=== PATIENT | female | born 1955 | race Caucasian/White ===

== ENCOUNTER 2017-03-18 18:24 | Emergency (ER) | payer OTHER ==
[2017-03-18 18:37] VITALS: BP 162/89; PULSE 88; TEMP 97.8; BMI 45.1
[2017-03-18] MEDS ORDERED: OXYMETAZOLINE 0.05% NASAL SOLUTION 15 ML BOTTLE NS ONE ×2 (18:40→18:47)
--- NOTE | 2017-03-18 18:47 | PDOC ---
History of Present Illness - General History Source: Patient Exam Limitations: No Limitations <José Miguel Noel - Last Filed: 03/18/17 18:47> - General History Source: Patient Exam Limitations: No Limitations - History of Present Illness Initial Comments: 03/18/17 18:55 The patient is a 61 year old female, with a significant past medical history of hypertension, who presents to the emergency room complaining of epistaxis ( resolved) that occurred approx. 30 minutes ago. The patient reports she was out at dinner with a friend when she experienced a nosebleed from the left nostril. The patient reports she was able to stop the bleeding by pinching her nose. She reports frequent nosebleeds as a child but states she has not had a recent nosebleed in approx. ten years. The patient states she is not on anticoagulants. She denies recent fever, chills, headache or dizziness. She denies nausea, vomit, diarrhea or constipation. She denies chest pain or shortness of breath. Allergies: NKA Primary Care Physician: Dr. Camacho Sweeney <Stephen Cardoso - Last Filed: 03/18/17 18:57> - General Chief Complaint: Nasal Bleeding Stated Complaint: NOSE BLEED Time Seen by Provider: 03/18/17 18:31 Past History - Past Medical History Cancer: Yes (UTERINE) GI Disorders: Yes (REFLUX) HTN: Yes Hypercholesterolemia: Yes Thyroid Disease: Yes (HYPO) - Suicide/Smoking/Psychosocial Hx Smoking History: Never smoked Hx Alcohol Use: No Drug/Substance Use Hx: No Substance Use Type: None <José Miguel Noel - Last Filed: 03/18/17 18:47> <Stephen Cardoso - Last Filed: 03/18/17 18:57> - Past Medical History Allergies/Adverse Reactions: Allergies Allergy/AdvReac Type Severity Reaction Status Date / Time No Known Allergies Allergy Verified 03/18/17 18:33 Home Medications: Ambulatory Orders Biotin 1 mg PO DAILY 06/02/14 Ezetimibe/Simvastatin [Vytorin 10-40 mg Tablet] 10 - 40 mg PO Q2D 06/02/14 Amlodipine Besylate 5 mg PO HS 03/18/17 Levothyroxine [Synthroid -] 100 mcg PO DAILY 03/18/17 Losartan Potassium [Cozaar] 100 mg PO HS 03/18/17 Ranitidine [Zantac -] 150 mg PO DAILY 03/18/17 Review of Systems - Review of Systems Comments:: 03/18/17 18:56 GENERAL/CONSTITUTIONAL: No fever or chills. No weakness. HEAD, EYES, EARS, NOSE AND THROAT: No change in vision. No ear pain or discharge. No sore throat. CARDIOVASCULAR: No chest pain or shortness of breath. RESPIRATORY: No cough, wheezing, or hemoptysis. GASTROINTESTINAL: No nausea, vomiting, diarrhea or constipation. GENITOURINARY: No dysuria, frequency, or change in urination. MUSCULOSKELETAL: No joint or muscle swelling or pain. No neck or back pain. SKIN: No rash NEUROLOGIC: No headache, vertigo, loss of consciousness, or change in strength/ sensation. ENDOCRINE: No increased thirst. No abnormal weight change. HEMATOLOGIC/LYMPHATIC: No anemia, easy bleeding, or history of blood clots. ALLERGIC/IMMUNOLOGIC: No hives or skin allergy. <Stephen Cardoso - Last Filed: 03/18/17 18:57> *Physical Exam - Vital Signs Last Vital Signs Temp Pulse Resp BP Pulse Ox 97.8 F 88 15 162/89 96 03/18/17 18:29 03/18/17 18:29 03/18/17 18:29 03/18/17 18:29 03/18/17 18:29 <José Miguel Noel - Last Filed: 03/18/17 18:47> - Vital Signs Last Vital Signs Temp Pulse Resp BP Pulse Ox 97.8 F 88 15 162/89 96 03/18/17 18:29 03/18/17 18:29 03/18/17 18:29 03/18/17 18:29 03/18/17 18:29 - Physical Exam Comments: 03/18/17 18:56 GENERAL: Awake, alert, and fully oriented, in no acute distress HEAD: No signs of trauma EYES: PERRLA, EOMI, sclera anicteric, conjunctiva clear ENT: +Irritated bilateral septum but no active bleeding. Auricles normal inspection, hearing grossly normal, oropharynx clear without exudates. Moist mucosa NECK: Normal ROM, supple, no lymphadenopathy, JVD, or masses EXTREMITIES: Normal range of motion, no edema. No clubbing or cyanosis. No cords, erythema, or tenderness NEUROLOGICAL: Cranial nerves II through XII grossly intact. Normal speech, normal gait SKIN: Warm, Dry, normal turgor, no rashes or lesions noted. <Stephen Cardoso - Last Filed: 03/18/17 18:57> ED Treatment Course - Medications Given in the ED: ED Medications Discontinued Medications Generic Name Dose Route Start Last Admin Trade Name Sawyer PRN Reason Stop Dose Admin Oxymetazoline HCl 1 spray 03/18/17 18:47 03/18/17 18:50 Afrin - NS 03/18/17 18:48 Not Given ONCE ONE <Stephen Cardoso - Last Filed: 03/18/17 18:57> Medical Decision Making - Medical Decision Making 03/18/17 18:48 A portion of this note was documented by scribe services under my direction. I have reviewed the details of the note, within reason, and agree with the documentation with the following case summary and management plan written by me. Patient treated in the ED. Nursing notes are reviewed and incorporated into the medical decision-making. Vital signs reviewed. Vital Signs Temp Pulse Resp BP Pulse Ox 97.8 F 88 15 162/89 96 03/18/17 18:29 03/18/17 18:29 03/18/17 18:29 03/18/17 18:29 03/18/17 18:29 61 year old female c/ pmh of HTN p/w L sided epistaxis. Pt reports that she was sitting at dinner table, when she started to have spontaneous nose bleed. By the time she arrived to ED, nose bleeding had stopped. No lightheadedness or feinting. I suspect that the changes in the weather is exacerbating her symptoms. Will give her afrin. I instructed her that if she bleeds again to use afrin and pinch. If uncontrollable, return to ED. Pt is well-appearing and without bleeding. Will d/c with PMD follow up. I discussed the physical exam findings, ancillary test results and final diagnoses with the patient. I answered all of the patient's questions. The patient was satisfied with the care received and felt comfortable with the discharge plan and treatment plan. The patient will call their primary care physician within 24 hours to arrange follow-up and will return to the Emergency Department with any new, persistant or worsening symptoms. <José Miguel Noel - Last Filed: 03/18/17 18:47> *DC/Admit/Observation/Transfer - Discharge Dispostion Admit: No <José Miguel Noel - Last Filed: 03/18/17 18:47> - Attestations Scribe Attestion: 03/18/17 18:56 Documentation prepared by Stephen Cardoso, acting as biomedical service engineer for José Miguel Noel MD. <Stephen Cardoso - Last Filed: 03/18/17 18:57> Diagnosis at time of Disposition: Epistaxis - Discharge Dispostion Disposition: HOME Condition at time of disposition: Good - Referrals Referrals: Camacho Sweeney MD [Primary Care Provider] - - Patient Instructions Printed Discharge Instructions: DI for Nosebleed Additional Instructions: If your nose bleeds again, please pinch your nose together. Apply afrin and pinch for 10 to 15 minutes. Buy a humidifier and use it. Follow up with your doctor.
== END 2017-03-18 18:55 | disposition home or self-care (01) ==
LOC: FER 18:24
DX: R04.0 Epistaxis (principal); I10 Essential (primary) hypertension; K21.9 Gastro-esophageal reflux disease without esophagitis; E03.9 Hypothyroidism, unspecified; Z85.42 Personal history of malignant neoplasm of other parts of uterus
CPT/HCPCS: 99281-25

== ENCOUNTER 2020-03-09 05:01 | Day surgery (SDC) | payer OTHER ==
[2020-03-08 14:52] VITALS: BMI 46.0
--- OUTSIDE RECORDS SUMMARY | 2020-03-09 05:06 | XMS ---
:1955 Author Organization [facility] Care Team Providers Name Role Phone LARA BILLY Unavailable Unavailable DiGiorno, Christopher Unavailable DiGiorno, Christopher Unavailable DiGiorno, Christopher Unavailable ADIEL MEJIAS Unavailable Unavailable REA SOL Unavailable Unavailable JIL MARTIN, [id number] Unavailable Unavailable PATRIC GOMES Unavailable Unavailable CARLITOS SEPULVEDA Unavailable Unavailable KHADRA PHOENIX Unavailable Unavailable BEENA MANZANARES Unavailable Unavailable Re-disclosure Warning The records that you are about to access may contain information from federally- assisted alcohol or drug abuse programs. If such information is present, then the following federally mandated warning applies: This information has been disclosed to you from records protected by federal confidentiality rules (42 CFR part 2). The federal rules prohibit you from making any further disclosure of this information unless further disclosure is expressly permitted by the written consent of the person to whom it pertains or as otherwise permitted by 42 CFR part 2. A general authorization for the release of medical or other information is NOT sufficient for this purpose. The Federal rules restrict any use of the information to criminally investigate or prosecute any alcohol or drug abuse patient.The records that you are about to access may contain highly sensitive health information, the redisclosure of which is protected by Article 27-F of the [facility] Public Health law. If you continue you may haveaccess to information: Regarding HIV / AIDS; Provided by facilities licensed or operated by the [facility] Office of Mental Health; or Provided by the [place] Office for People With Developmental Disabilities. If such information is present, then the following [facility] mandated warning applies: This information has been disclosed to you from confidential records which are protected by state law. State law prohibits you from making any further disclosure of this information without the specific written consent of the person to whom it pertains, or as otherwise permitted by law. Any unauthorized further disclosure in violation of state law may result in a fine or group home sentence or both. A general authorization for the release of medical or other information is NOT sufficient authorization for further disclosure. Allergies and Adverse Reactions Type Description Substance Reaction Status Data Source(s ) Drug allergy No Known Allergies No Known [facility] Allergies [facility] Drug allergy No Known Drug No Known Drug [facility] Allergies [facility] Food allergy No Known Food No Known Food [facility] Encounters Encounter Providers Location Date Indications Data Source(s ) Outpatient Attender: 02/26/2020 C54.1 [id number] [facility], 06:00:00 AM Health Care REAAdmitter: EDT Corporat ion REA SOLReferrer: CARLITOS SEPULVEDA C54.1 [id number] Attender: Deonte 02/25/2020 12:00:00 AM ED T [facility], ) Office Attender: Deonte 02/25/2020 12:00:00 AM ED T [facility] ([facility] ) Office Attender: Deonte 02/25/2020 12:00:00 AM ED T [facility] ([facility], ) Office Outpatient Attender: MARIAJOSE 01/15/2020 06:00:00 C54.1 [facility] LARA ESPINOSAAdmitter: AM EDT Health Care LARA BILLY Corporati on JESÚSReferrer: LARA BILLY C54.1 Outpatient Attender: MAGALIE 12/30/2019 10:35:00 C54.1 [facility] EMILIAUNAdmitter: MAGALIE AM EDT [facility] Corporat ion LARA BILLY C54.1 Outpatient Attender: MARIAJOSE 12/11/2019 06:00:00 C54.1 [facility] LARA ESPINOSAAdmitter: AM EDT Health Care LEONIE PHOENIXeferrer: LARA Moseley C54.1 Outpatient Attender: ELISEO, 12/04/2019 09:36:00 C54.1 [facility] EDT alth Care HUMAYUNReferrer: ELISEO [facility] PATRIC C54.1 Outpatient Attender: COCO, 12/04/2019 07:00:00 C54.1 [facility] CARLITOSAdmitter: SWETA, AM EDT Health Care MICHAELReferrer: Corporat ion CARLITOS SEPULVEDA C54.1 Outpatient Attender: SWETA, 08/19/2019 06:00:00 C54.1 [facility] REAAdmitter: SWETA, AM EST Health Care MICHAELReferrer: SWETA Textic REA C54.1 Outpatient Attender: SWETA 07/10/2019 C54.1 [facility] MICHAELAttender: 06:00:00 AM EST [id number] [facility] Care LARA BILLY Corporati on SHAHAttender: CARLITOS SEPULVEDAAdmitter: REA SOLReferrer: CARLITOS SEPULVEDA C54.1 [id number] Outpatient Attender: ELISEO 07/08/2019 10:21:00 C54.1 [facility] ROBERTAdmitter: YAZIDI, AM EST alth Care HUMAYUNReferrer: ELISEO Textic PATRIC C54.1 Outpatient Attender: COCO 07/08/2019 C54.1 [facility] CARLITOSAdmitter: 06:00:00 AM EST [id number] [facility] REAReferrer: CARLITOS SEPULVEDA C54.1 [id number] Outpatient Attender: COCO, 06/12/2019 C54.1 [id number] [facility] CARLITOSAdmitter: 05:00:00 AM EST [id number] Hea lt Care COCO Textic KELECHIKAReferrer: CARLITOS SEPULVEDA C54.1 [id number] Outpatient Attender: COCO, 05/15/2019 07:00:00 C54.1 [facility] CARLITOSAdmitter: SWETA, [facility] Care MICHAELReferrer: Corporat ion CARLITOS SEPULVEDA C54.1 Outpatient Attender: SWETA, 04/17/2019 C54.1 [facility] MICHAELAdmitter: 06:00:00 AM EDT [id number] [facility] SWETA, [facility] MICHAELReferrer: REA SOL C54.1 [id number] Outpatient Attender: MARIAJOSE, 03/26/2019 01:32:00 C54.1 [facility] LARA ESPINOSAAdmitter: EDT [facility] Care LARA BILLY on JESÚSReferrer: LARA BILLY C54.1 Outpatient Attender: [id number] VERONICA, 03/25/2019 06:00:00 C 54.1 [facility] ANATIAdmitter: [id number] AM EDT [facility] Care Linnea MARTINerrer: Textic [id number] JIL MARTIN C54.1 Outpatient Attender: COCO, 03/20/2019 07:00:00 C54.1 [facility] CARLITOSAdmitter: SWETA [facility] MICHAELReferrer: Corporat ion ASHLEYRoseRAGHAVCARLITOS C54.1 Outpatient Attender: [id number] VERONICA, 03/14/2019 06:00:00 C 54.1 [facility] ANATIAdmitter: [id number] AM EDT [facility] Care Linnea MARTINerrer: Corporation [id number] JIL MARTIN C54.1 Outpatient Attender: MARIAJOSE, 02/19/2019 10:28:00 C54.1 [facility] LARA ESPINOSAAdmitter: AM EDT Health Care LARA BILLYReferrer: LARA BILLY C54.1 Outpatient Attender: MARIAJOSE, 02/19/2019 06:00:00 C54.1 [facility] LARA ESPINOSAAdmitter: AM ED Health Care LARA BILLY on JESÚSReferrer: LARA BILLY C54.1 Outpatient Attender: MARIAJOSE, 02/12/2019 Z01.818,C54.1 [facility] LARA ESPINOSAAdmitter: 02:07:00 PM EDT [facility] Care LARA BILLY on JESÚSReferrer: LARA BILLY Z01.818,C54.1 Outpatient Attender: GLENNA, 02/10/2019 C54.1,R22.2 [facility] GRIGORYAttender: 06:00:00 AM EDT [facility] Care LARA BILLY on SHAHAdmitter: LARA BILLYReferrer: LARA BILLY C54.1,R22.2 Outpatient Attender: LIZETT, 02/07/2019 06:00:00 C54.1 R22.2 [facility] ZVIAdmitter: AM EDT [facility] Care LIZETTKinesense [facility] ZVIReferrer: LARA BILLY C54.1 R22.2 Outpatient Attender: MARIAJOSE, 02/03/2019 06:00:00 C54.1, R22.2 [facility] LARA ESPINOSAAdmitter: AM EDT [facility] Care LARA BILLY on JESÚSReferrer: LARA BILLY C54.1,R22.2 Outpatient Attender: MARIAJOSE, 01/28/2019 10:14:00 C54.1 [facility] LARA ESPINOSAAdmitter: AM [facility] LARA BILLY on JESÚSReferrer: LARA BILLY C54.1 Medications Medication Brand Start Product Dose Route Administrative Pharmacy [facility] Indications Reaction Description Data Name Date Form Instructions Instructions Source(s) Ergocalcife VITAMI 02/24/ complet VITAMI N D2 [facility] (St rol 71829 N 2019 ed [facility] UNT Oral D2:136 12:00: Medical , Capsule 7410 00 AM PC) VITAMIN EDT [id number] Tamoxifen TAMOXI 02/24/ complet TAMOXIFE N [facility] (St 20 MG Oral FEN:31 2019 ed [facility] Tablet 3195 12:00: Medical, TAMOXIFEN:3 00 AM PC) 26368 EDT SUPREP 02/24/ LIQUID 1 complet SUPREP LORRAINE L [facility] (St BOWEL PREP 2019 ed PREP KIT Liz' s KIT:[id number] 12:00: Medica l, 00 AM PC) EDT Furosemide FUROSE 02/24/ complet FUROSEM RAGHAVENDRA [facility] (St 40 MG Oral MIDE:3 2019 ed [facility] Tablet 77191 12:00: Medical, FUROSEMIDE: 00 AM PC) [id number] EDT FISH OIL: 02/24/ complet FISH OIL M SHARAN (St 2020 ed Liz's 12:00: Medical, 00 AM PC) EDT ezetimibe EZETIM 02/24/ complet EZETIMIB E-SI [facility] (St 10 MG / DARIEN-SI 2019 ed MVASTATIN Liz' s Simvastatin MVASTA 12:00: Medi [place], 40 MG Oral TIN:47 00 AM PC) Tablet 6350 EDT EZETIMIBE-S IMVASTATIN: 817013 Megestrol MEGEST 02/24/ TABLET 30 complet MEGEST ROL [facility] (St Acetate 40 ROL 2019 ed ACETATE [facility] MG Oral ACETAT 12:00: Medical, Tablet E:8602 00 AM PC) MEGESTROL 21 EDT ACETATE:860 221 pantoprazol PANTOP 02/24/ DELAYED 30 complet GARY TOPRAZOLE [facility] (St e 20 MG RAZOLE 2019 RELEASE ed [facility] Delayed :15094 12:00: TABLET Medica l, Release 2 00 AM PC) Oral Tablet EDT PANTOPRAZOL E:950815 Amlodipine AMLODI 02/24/ complet AMLODIP INE [facility] (St 10 MG Oral PINE 2019 ed BESYLATE Liz' s Tablet BESYLA 12:00: Medical, AMLODIPINE TE:308 00 AM PC) BESYLATE:30 135 EDT 8135 Losartan LOSART 02/24/ complet LOSARTAN [facility] (St Potassium AN:979 2019 ed Liz's 100 MG Oral 480 12:00: Medica l, Tablet 00 AM PC) LOSARTAN:97 EDT 9480 Aspirin 81 ASPIRI 02/24/ complet ASPIRIN [facility] (St MG Delayed N:3084 2019 ed Liz[facility] Release 16 12:00: Medical, Oral Tablet 00 AM PC) ASPIRIN:308 EDT 416 Levothyroxi LEVOTH 02/24/ complet LEVOTH YROXIN [facility] (St ne Sodium YROXIN 2019 ed E Liz's 0.125 MG E:9662 12:00: Medical , Oral Tablet 24 00 AM PC) LEVOTHYROXI EDT NE:708528 Losartan Losart 02/19/ complet [place] Potassium an 2018 ed [facility] 100 MG Oral [100 12:00: Health Tablet mg 00 AM Care Losartan Tablet EDT Corporati o [100 mg ]: 1 n Tablet]: 1 Tablet Tablet Oral Oral DAILY DAILY Levothyroxi Synthr 02/19/ complet [place] Sodium oid 2018 ed [facility] 0.1 MG Oral (Levot 12:00: Heal th Tablet hyroxi 00 AM Care Synthroid ne) EDT Corporatio (Levothyrox [100 n ine) [100 mcg mcg Tablet Tablet]: 1 ]: 1 Tablet Oral Tablet DAILY Oral DAILY Ranitidine Raniti complet [place] 150 MG Oral dine 2018 [facility] Tablet [150 12:00: Health Ranitidine mg 00 AM Care [150 mg Tablet EDT Corporatio Tablet]: 1 ]: 1 n Tablet Oral Tablet DAILY Oral DAILY Amlodipine Amlodi complet [place] 10 MG Oral pine 2018 ed [facility] Tablet [10 mg 12:00: Health Amlodipine Tablet 00 AM Care [10 mg ]: 1 EDT Corporatio Tablet]: 1 Tablet n Tablet Oral Oral DAILY IN DAILY EVENING IN MOHAMUDIN G ezetimibe Vytori 02/19/ complet [place] t[place] 10 MG / n 2018 [facility] Simvastatin 10-40 12:00: Healt h 40 MG Oral (Ezeti 00 AM Care Tablet mibe-S EDT Corporatio Vytorin imvast n 10-40 atin) (Ezetimibe- [10 Simvastatin mg-40 ) [10 mg-40 mg mg Tablet]: Tablet 0.5 Tablet ]: 0.5 Oral EVERY Tablet OTHER Oral DAYComment: EVERY half a pill OTHER DAYCom ment: half a pill Cephalexin Cephal complet [place] 500 MG Oral exin ed [facility] Capsule [500 Health Cephalexin mg Care [500 mg Capsul Corporatio Capsule]: e]: n 500 MG Oral 500 MG 10A-10P Oral 10A-10 P Simethicone Gas complet [place] 80 MG Relief ed [facility] Chewable (Simet Health Tablet Gas hicone Care Relief ) [80 Corporatio (Simethicon mg n e) [80 mg Tablet Tablet]: 80 ]: 80 MG Oral Q8H MG Oral Q8H Acetaminoph Acetam complet [place] t[place] en 325 MG inophe ed [facility] Oral Tablet n [325 Health Acetaminoph mg Care en [325 mg Tablet Corpora jose francisco Tablet]: ]: 650 n 650 MG Oral MG EVERY 6 Oral HOURS EVERY 6 HOURS Simvastatin Simvas complet [place] 20 MG Oral tatin ed [facility] Tablet [20 mg Health Simvastatin Tablet Care [20 mg ]: 40 Corporatio Tablet]: 40 MG n MG Oral Oral Q10PM Q10PM Docusate DOK complet [place] Sodium 100 (Docus ed r Count y MG Oral ate Health Capsule DOK Sodium Care (Docusate ) [100 Corporat io Sodium) mg n [100 mg Capsul Capsule]: e]: 100 MG Oral 100 MG Q8H Oral Q8H Oxycodone Oxycod complet [facility] heste Hydrochlori one [5 ed r Coun ty de 5 MG mg Health Oral Tablet Tablet Care Oxycodone ]: 5 Corporatio [5 mg MG n Tablet]: 5 Oral MG Oral Q4HPRN Q4HPRN PRN PRN Pain Pain sennosides, Senna complet [facility] 8.6 MG Lax ed [facility] Oral Tablet (Senno Health Senna Lax sides) Care (Sennosides [8.6 Corporat io ) [8.6 mg mg n Tablet]: Tablet 17.2 MG ]: Oral Q10PM 17.2 MG Oral Q10PM Insurance Providers Payer name Policy type Policy ID Covered Covered alliance party's Policy P xiomara / Coverage alliance party ID relationship to [place] Inf ormation type [place] [id number] 1 [place] [id number] [employer] PLAN Problems, Conditions, and Diagnoses Code Display Name Description Problem Type Effective Data Sour ce(s) Dates K30 Functional FUNCTIONAL Problem 02/25/2020 [facility] ([address] dyspepsia DYSPEPSIA 12:00:00 AM [facility] Medica l, EDT PC) K22.70 Henry's esophagus HENRY`S Problem 02/25/2020 MED[facility] N (St without dysplasia ESOPHAGUS WITHOUT 12:00:00 AM [facility] Jaden, DYSPLASIA EDT PC) R19.5 Other fecal OTHER FECAL Problem 02/25/2020 [facility] (St abnormalities ABNORMALITIES 12:00:00 AM [facility], EDT PC) C54.1 Malignant neoplasm MALIGNANT Diagnosis 02/26/2020 [place] of endometrium NEOPLASM OF 06:00:00 AM [facility] ealt ENDOMETRIUM EDT Care Corporation E78.5 Hyperlipidemia, HYPERLIPIDEMIA, Diagnosis 01/15/2020 [place] unspecified UNSPECIFIED 06:00:00 AM [facility] EDT [facility] Corporation E03.9 Hypothyroidism, HYPOTHYROIDISM, Diagnosis 01/15/2020 [place] unspecified UNSPECIFIED 06:00:00 AM [facility] EDT Care Corporation I10 Essential (primary) ESSENTIAL Diagnosis 01/15/2020 [facility] hypertension (PRIMARY) 06:00:00 AM [facility] HYPERTENSION EDT Care Corporation C54.9 Malignant neoplasm MALIGNANT Diagnosis 08/19/2019 [facility] [place] of corpus uteri, NEOPLASM OF 06:00:00 AM [facility] unspecified CORPUS UTERI, EST Care UNSPECIFIED Corporation 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 EDT Care peritoneum RETROPERITON AND Corporat ion PERITONEUM K66.9 Disorder of DISORDER OF Diagnosis 02/19/2019 [place] peritoneum, PERITONEUM, 10:28:00 AM [facility] unspecified UNSPECIFIED EDT Care Corporation Z01.818 Encounter for other ENCOUNTER FOR Diagnosis 02/12/2019 [place] azevedoculver preprocedural OTHER 02:07:00 PM [facility] examination PREPROCEDURAL EDT Care EXAMINATION Corporation Z68.41 Body mass index BODY MASS INDEX Diagnosis 02/10/2019 Raghav culver (BMI) 40.0-44.9, (BMI) 40.0-44.9, 06:00:00 AM C Recordant adult ADULT EDT Care Corporation E66.01 Morbid (severe) MORBID (SEVERE) Diagnosis 02/10/2019 Raghav culver obesity due to OBESITY DUE TO 06:00:00 AM Count y Health excess calories EXCESS CALORIES EDT Care Corporation Z85.42 Personal history of PERSONAL HISTORY Diagnosis 02/10/2019 [place] malignant neoplasm OF MALIGNANT 06:00:00 AM [facility] other parts of NEOPLASM OF OT EDT Ca re uterus PRT UTERUS Corporation R19.00 Intra-abdominal and INTRA-ABD AND Diagnosis 02/10/2019 [facility] pelvic swelling, PELVIC SWELLING, 06:00:00 AM C ounty [facility] mass and lump, MASS AND LUMP, EDT Care unspecified site UNSP SITE Corporat ion R22.2 Localized swelling, LOCALIZED Diagnosis 02/07/2019 [facility] pink mass and lump, SWELLING, MASS 06:00:00 AM Count Health trunk AND LUMP, TRUNK EDT Care Textic Surgeries/Procedures Procedure Description Date Indications Data Source(s) Documentation of current 02/25/2020 [facility] ([facility] medications (procedure) 12:00:00 AM EDT M edical, PC) COLLECTION VENOUS BLOOD 02/25/2020 MED[facility] EN ([facility] VENIPUNCTURE 12:00:00 AM EDT Medical, PC) Results ID Date Data Source [id number] 03/04/2020 12:48:00 PM EDT [facility] Name Value Range Interpretation Description Data Sup porting Code Source(s) Document(s ) SARS [facility] coronavirus 2 RNA This lab was ordered by [facility] and reported by [facility]. ID Date Data Source [id number] 02/20/2019 05:30:54 PM EDT [facility] [id number] Textic Name Value Range Interpretation Description Data Sup porting Code Source(s) Document(s ) CV Access (PACSIMAGE <td> 02/20/2019 [place] Device 09:45</td><td> [facility] W/Fluoro Access Device Health Care Final Result W/Fluoro Corporation Name: </td><td><NABEEL De Guzman V ph MRN: styleCode="[id number] [id number] Sex: s">(PACSIMAGE F : 1955 )</paragraph><br/ Location: F >
Final Admitting Result Physician:

Requesting Name: NABEEL LEIGH Physician: Dayami BERMUDEZ
MRN: [id number] Sex: F Exam: CV
ACCESS DEVICE : 1955 W/FLUORO Location: F 02/20/2019
11:57 Admitting In relation Physician: to the report
below please Requesting note the Physician: LARA following. FRANNIE Imaging

(Ultrasound, Exam: CV CT or ACCESS DEVICE Fluoroscopy) W/FLUORO guidance 02/20/2019 11:57 means that 1. Imaging

(Ultrasound, In relation to CT or the report below Fluoroscopy) please note the evaluation of following. potential

access sites Imaging has been (Ultrasound, CT performed or Fluoroscopy) demonstrating guidance means accessibility that of the
1. target vessel Imaging or organ by (Ultrasound, CT the needle or Fluoroscopy) approach. evaluation of 2. The needle potential has been
advanced to access sites has the target been performed under demonstrating real-time accessibility of imaging
(Ultrasound, the target CT or vessel or organ Fluoroscopy) by the needle guidance. approach. 3. The final
2. needle The needle has position has been advanced to been recorded the target under using the real-time selected
imaging imaging modality (Ultrasound, CT (Ultrasound, or Fluoroscopy) CT or guidance. Fluoroscopy);
3. the images The final needle as well as position has been all other recorded using obtained the selected procedural
images have imaging modality been (Ultrasound, CT permanently or Fluoroscopy); stored in the images PACS.
as Routine well as all other aseptic obtained technique procedural images means that have been the procedure permanently was performed
in stored in PACS. operating room

conditions, Routine aseptic after technique means prepping and that the sterile procedure was draping the performed patient's
in skin within operating room the area of conditions, after procedure, prepping and using sterile sterile draping instruments
and equipment the patient's within the skin within the operative area of field, and procedure, using full sterile sterile
attire (hats, instruments and masks, equipment within gloves, the operative gowns). field, and full Intravenous
sedation sterile attire means that (hats, masks, intravenous gloves, gowns). administratio n of Versed

and Fentanyl Intravenous has been sedation means utilized that intravenous under my administration of supervision
with a Versed and specially Fentanyl has been assigned utilized under my Registered supervision with Nurse
providing the a specially patient's assigned physiologic Registered Nurse monitoring providing the (blood patient's pressure,
respiration, physiologic EKG, monitoring (blood end-tidal pressure, CO2 and pulse respiration, EKG, oximetry) end-tidal according to
CO2 the standard and pulse [facility] protocol. oximetry) The doses according to the of used standard [facility] medications, protocol. time and
The frequency of doses of used the medications, time physiologic and frequency of monitoring as the physiologic well as the
duration of monitoring as the procedure well as the has been duration of the entered into procedure has the nursing been intra-procedu
entered ral record. into the nursing The intra-procedural patient's record. radiation

dose The patient's expressed as radiation dose mGy in expressed as mGy Reference in Reference Point Air Point Kerma has
Air been Kerma has been permanently permanently recorded in recorded in the the [facility] Radiology Radiology
Information Information System. System. Placement of

a central Placement of a venous access central venous port The access port procedure was

performed on The procedure a patient was performed on with a patient with endometrial endometrial cancer who cancer requires
who intravenous requires chemotherapy. intravenous The chemotherapy. The procedure, procedure, possible possible risks,
complications risks, , benefits complications, and benefits and alternatives alternatives were were discussed discussed
with with the the patient and patient and consent was consent was obtained. The obtained. The procedure was procedure was
performed performed with with routine routine aseptic aseptic technique, under technique, local anesthesia, under local
anesthesia, with with intravenous intravenous sedation and sedation and ultrasonographic ultrasonograp and fluoroscopic hic and
fluoroscopic guidance. A guidance. A puncture of the puncture of right internal the right jugular vein was internal done jugular vein
with was done real-time with ultrasonographic real-time guidance using a ultrasonograp 22 gauge needle. hic guidance
using a 22 Using Seldinger gauge needle. technique, the Using track was Seldinger dilated. Then, a technique, subcutaneous the track was
dilated. pocket was formed Then, a in the subclavian subcutaneous area to pocket was accommodate the formed in the chamber subclavian
of the area to port. This was accommodate done through a 1 the chamber inch incision of the port. parallel This was done
and through a 1 below the inch incision clavicle. Careful parallel hemostasis was and below the achieved. The clavicle.
Careful pocket was hemostasis irrigated with was achieved. normal saline The pocket solution. A was irrigated subcutaneous with normal
saline tunnel was formed solution. A between the subcutaneous pocket and the tunnel was venous access formed site. between the
A pocket and dual-lumen the venous catheter was access site. introduced into A dual-lumen the venous access catheter was site. introduced
The tip into the of the catheter venous access was placed at the site. The junction of the tip of the right catheter was
atrium placed at the and the superior junction of vena cava under the right real-time atrium and fluoroscopy. the superior
vena cava The external under segment of the real-time catheter was fluoroscopy. attached to the The external chamber. segment of
The the catheter chamber was was attached placed into the to the subcutaneous chamber. pocket. The The chamber incision was placed
was into the closed with subcutaneous absorbable pocket. The sutures, incision Dermabond and was closed Steri-Strips. with
absorbable The port sutures, ("Port-A-Cath Dermabond and Power P.A.C.") Steri-Strips. was accessed, The port irrigated ("Port-A-Cath
with Power heparinized P.A.C.") was saline and a accessed, sterile dressing irrigated was applied. with There heparinized
was no saline and a complication. sterile
dressing was An educational applied. brochure There was regarding the no device was given complication. to the An
patient educational (or included to brochure the patient's regarding the chart to be given device was to the given to the
patient (or patient's included to health-care proxy the patient's by the unit's chart to be RN). given to the

<b patient's r/>
health-care Resident proxy by the Radiologist: unit's RN).
Attending Resident Radiologist: Radiologist: Beena Berg MD Radiologist:
Beena Manzanares MD Radiologist: Rosenda Manzanares Radiologist: MD [place]
Glenna FITZGERALD Transcribed Date: Transcribed 02/20/2019 12:03 Date:
02/20/2019 Finalized Date: 12:03 02/20/2019 12:04 Finalized Date:

</td> 02/20/2019 12:04 Angio US (PACSIMAGE <td> 02/20/2019 [place] Guidance 09:45</td><td> [facility] Angio US Guidance Health Care Final Result </td><td><paragr Corporati on Name: chuck NABEEL LEIGH V styleCode="Italic MRN: s">(PACSIMAGE [id number] Sex: F : )</paragraph><br/ 1955 >
Final Location: F Result Admitting

Physician: Name: NABEEL LEIGH Requesting V Physician:
MRN: LARA [id number] Sex: F FRANNIE
Exam: : 1955 ANGIO US Location: F GUIDANCE
02/20/2019 Admitting 11:57 Physician: In relation
to the report Requesting below please Physician: LARA note the FRANNIE following.

Imaging Exam: ANGIO US (Ultrasound, GUIDANCE CT or 02/20/2019 11:57 Fluoroscopy) guidance

means that In relation to 1. Imaging the report below (Ultrasound, please note the CT or following. Fluoroscopy)

evaluation of Imaging potential (Ultrasound, CT access sites or Fluoroscopy) has been guidance means performed that demonstrating
1. accessibility Imaging of the (Ultrasound, CT target vessel or Fluoroscopy) or organ by evaluation of the needle potential approach.
2. The needle access sites has has been been performed advanced to demonstrating the target accessibility of under
real-time the target imaging vessel or organ (Ultrasound, by the needle CT or approach. Fluoroscopy)
2. guidance. The needle has 3. The final been advanced to needle the target under position has real-time been recorded
using the imaging selected (Ultrasound, CT imaging or Fluoroscopy) modality guidance. (Ultrasound,
3. CT or The final needle Fluoroscopy); position has been the images recorded using as well as the selected all other
obtained imaging modality procedural (Ultrasound, CT images have or Fluoroscopy); been the images permanently
as stored in well as all other PACS. obtained Routine procedural images aseptic have been technique permanently means that
the procedure stored in PACS. was performed in

operating Routine aseptic room technique means conditions, that the after procedure was prepping and performed sterile
in draping the operating room patient's conditions, after skin within prepping and the area of sterile draping procedure,
using sterile the patient's instruments skin within the and equipment area of within the procedure, using operative sterile field, and
full instruments and sterile equipment within attire (hats, the operative masks, field, and full gloves,
gowns). sterile attire Intravenous (hats, masks, sedation gloves, gowns). means that intravenous

administratio Intravenous n of Versed sedation means and Fentanyl that intravenous has been administration of utilized
under my Versed and supervision Fentanyl has been with a utilized under my specially supervision with assigned
Registered a specially Nurse assigned providing the Registered Nurse patient's providing the physiologic patient's monitoring
(blood physiologic pressure, monitoring (blood respiration, pressure, EKG, respiration, EKG, end-tidal end-tidal CO2 and pulse
CO2 oximetry) and pulse according to oximetry) the standard according to the [facility] protocol. standard [facility] The doses protocol. of used
The medications, doses of used time and medications, time frequency of and frequency of the the physiologic physiologic
monitoring as monitoring as well as the well as the duration of duration of the the procedure procedure has has been been entered into
entered the nursing into the nursing intra-procedu intra-procedural ral record. record. The

patient's The patient's radiation radiation dose dose expressed as mGy expressed as in Reference mGy in Point Reference
Air Point Air Kerma has been Kerma has permanently been recorded in the permanently [facility] Radiology recorded in
the [facility] Information Radiology System. Information

System. Placement of a Placement of central venous a central access port venous access

port The The procedure procedure was was performed on performed on a patient with a patient endometrial with cancer endometrial
who cancer who requires requires intravenous intravenous chemotherapy. The chemotherapy. procedure, The possible procedure,
possible risks, risks, complications, complications benefits and , benefits alternatives were and discussed alternatives
with were the patient and discussed consent was with the obtained. The patient and procedure was consent was
obtained. The performed with procedure was routine aseptic performed technique, under with routine local anesthesia, aseptic
technique, with under local intravenous anesthesia, sedation and with ultrasonographic intravenous and fluoroscopic sedation and
ultrasonograp guidance. A hic and puncture of the fluoroscopic right internal guidance. A jugular vein was puncture of done the right
with internal real-time jugular vein ultrasonographic was done guidance using a with 22 gauge needle. real-time
ultrasonograp Using Seldinger hic guidance technique, the using a 22 track was gauge needle. dilated. Then, a Using subcutaneous Seldinger
technique, pocket was formed the track was in the subclavian dilated. area to Then, a accommodate the subcutaneous chamber pocket was
of the formed in the port. This was subclavian done through a 1 area to inch incision accommodate parallel the chamber
and of the port. below the This was done clavicle. Careful through a 1 hemostasis was inch incision achieved. The parallel
and below the pocket was clavicle. irrigated with Careful normal saline hemostasis solution. A was achieved. subcutaneous The pocket
was irrigated tunnel was formed with normal between the saline pocket and the solution. A venous access subcutaneous site. tunnel was
A formed dual-lumen between the catheter was pocket and introduced into the venous the venous access access site. site. A dual-lumen
The tip catheter was of the catheter introduced was placed at the into the junction of the venous access right site. The
atrium tip of the and the superior catheter was vena cava under placed at the real-time junction of fluoroscopy. the right
atrium and The external the superior segment of the vena cava catheter was under attached to the real-time chamber. fluoroscopy.
The The external chamber was segment of placed into the the catheter subcutaneous was attached pocket. The to the incision chamber.
was The chamber closed with was placed absorbable into the sutures, subcutaneous Dermabond and pocket. The Steri-Strips. incision
was closed The port with ("Port-A-Cath absorbable Power P.A.C.") sutures, was accessed, Dermabond and irrigated Steri-Strips.
with The port heparinized ("Port-A-Cath saline and a Power sterile dressing P.A.C.") was was applied. accessed, There irrigated
was no with complication. heparinized
saline and a An educational sterile brochure dressing was regarding the applied. device was given There was to the no
patient complication. (or included to An the patient's educational chart to be given brochure to the regarding the
device was patient's given to the health-care proxy patient (or by the unit's included to RN). the patient's

<b chart to be r/>
given to the Resident patient's Radiologist: health-care
proxy by the Attending unit's RN). Radiologist: Beena Lawrence MD Radiologist:
Attending Finalizing Radiologist: Radiologist: Beena Manzanares MD, MD Finalizing
Radiologist: Transcribed Date: Beena 02/20/2019 12:03 Glenna FITZGERALD
Transcribed Finalized Date: Date: 02/20/2019 12:04 02/20/2019 12:03

</td> Finalized Date: 02/20/2019 12:04 S/P CVP (PACSIMAGE <td> 02/20/2019 [place] Procedure 09:45</td><td> [facility] ) S/P CVP Procedure Health Care Final Result </td><td><paragr Corporati on Name: aph NABEEL LEIGH V styleCode="Italic MRN: s">(PACSIMAGE [id number] Sex: F : )</paragraph><br/ 1955 >
Final Location: F Result Admitting

Physician: Name: LU NABEEL Requesting V Physician:
MRN: LARA [id number] Sex: F FRANNIE
Exam: S/P : 1955 CVP PROCEDURE Location: F 02/20/2019
11:57 Admitting In relation Physician: to the report
below please Requesting note the Physician: LARA following. FRANNIE Imaging

(Ultrasound, Exam: S/P CVP CT or PROCEDURE Fluoroscopy) 02/20/2019 11:57 guidance means that

1. Imaging In relation to (Ultrasound, the report below CT or please note the Fluoroscopy) following. evaluation of

potential Imaging access sites (Ultrasound, CT has been or Fluoroscopy) performed guidance means demonstrating that accessibility
1. of the Imaging target vessel (Ultrasound, CT or organ by or Fluoroscopy) the needle evaluation of approach. potential 2. The needle
has been access sites has advanced to been performed the target demonstrating under accessibility of real-time
imaging the target (Ultrasound, vessel or organ CT or by the needle Fluoroscopy) approach. guidance.
2. 3. The final The needle has needle been advanced to position has the target under been recorded real-time using the
selected imaging imaging (Ultrasound, CT modality or Fluoroscopy) (Ultrasound, guidance. CT or
3. Fluoroscopy); The final needle the images position has been as well as recorded using all other the selected obtained
procedural imaging modality images have (Ultrasound, CT been or Fluoroscopy); permanently the images stored in
as PACS. well as all other Routine obtained aseptic procedural images technique have been means that permanently the procedure
was performed stored in PACS. in operating

room Routine aseptic conditions, technique means after that the prepping and procedure was sterile performed draping the
in patient's operating room skin within conditions, after the area of prepping and procedure, sterile draping using sterile
instruments the patient's and equipment skin within the within the area of operative procedure, using field, and sterile full
sterile instruments and attire (hats, equipment within masks, the operative gloves, field, and full gowns).
Intravenous sterile attire sedation (hats, masks, means that gloves, gowns). intravenous administratio

n of Versed Intravenous and Fentanyl sedation means has been that intravenous utilized administration of under my
supervision Versed and with a Fentanyl has been specially utilized under my assigned supervision with Registered
Nurse a specially providing the assigned patient's Registered Nurse physiologic providing the monitoring patient's (blood
pressure, physiologic respiration, monitoring (blood EKG, pressure, end-tidal respiration, EKG, CO2 and pulse end-tidal oximetry)
CO2 according to and pulse the standard oximetry) [facility] protocol. according to the The doses standard [facility] of used protocol. medications,
The time and doses of used frequency of medications, time the and frequency of physiologic the physiologic monitoring as
well as the monitoring as duration of well as the the procedure duration of the has been procedure has entered into been the nursing
entered intra-procedu into the nursing ral record. intra-procedural The record. patient's

radiation The patient's dose radiation dose expressed as expressed as mGy mGy in in Reference Reference Point Point Air
Air Kerma has Kerma has been been permanently permanently recorded in the recorded in [facility] Radiology the [facility]
Radiology Information Information System. System.

Placement of Placement of a a central central venous venous access access port port The

procedure was The procedure performed on was performed on a patient a patient with with endometrial endometrial cancer cancer who
who requires requires intravenous intravenous chemotherapy. chemotherapy. The The procedure, procedure, possible possible
risks, risks, complications complications, , benefits benefits and and alternatives were alternatives discussed were
with discussed the patient and with the consent was patient and obtained. The consent was procedure was obtained. The
procedure was performed with performed routine aseptic with routine technique, under aseptic local anesthesia, technique,
under local with anesthesia, intravenous with sedation and intravenous ultrasonographic sedation and and fluoroscopic ultrasonograp
hic and guidance. A fluoroscopic puncture of the guidance. A right internal puncture of jugular vein was the right done internal
with jugular vein real-time was done ultrasonographic with guidance using a real-time 22 gauge needle. ultrasonograp
hic guidance Using Seldinger using a 22 technique, the gauge needle. track was Using dilated. Then, a Seldinger subcutaneous technique,
the track was pocket was formed dilated. in the subclavian Then, a area to subcutaneous accommodate the pocket was chamber formed in the
of the subclavian port. This was area to done through a 1 accommodate inch incision the chamber parallel of the port.
and This was done below the through a 1 clavicle. Careful inch incision hemostasis was parallel achieved. The and below the
clavicle. pocket was Careful irrigated with hemostasis normal saline was achieved. solution. A The pocket subcutaneous was irrigated
with normal tunnel was formed saline between the solution. A pocket and the subcutaneous venous access tunnel was site. formed
A between the dual-lumen pocket and catheter was the venous introduced into access site. the venous access A dual-lumen site. catheter was
The tip introduced of the catheter into the was placed at the venous access junction of the site. The right tip of the
atrium catheter was and the superior placed at the vena cava under junction of real-time the right fluoroscopy. atrium and
the superior The external vena cava segment of the under catheter was real-time attached to the fluoroscopy. chamber. The external
The segment of chamber was the catheter placed into the was attached subcutaneous to the pocket. The chamber. incision The chamber
was was placed closed with into the absorbable subcutaneous sutures, pocket. The Dermabond and incision Steri-Strips. was closed
with The port absorbable ("Port-A-Cath sutures, Power P.A.C.") Dermabond and was accessed, Steri-Strips. irrigated The port
with ("Port-A-Cath heparinized Power saline and a P.A.C.") was sterile dressing accessed, was applied. irrigated There with
was no heparinized complication. saline and a
sterile An educational dressing was brochure applied. regarding the There was device was given no to the complication.
patient An (or included to educational the patient's brochure chart to be given regarding the to the device was
given to the patient's patient (or health-care proxy included to by the unit's the patient's RN). chart to be

<b given to the r/>
patient's Resident health-care Radiologist: proxy by the
unit's RN). Attending Radiologist: Resident Beena Manzanares Radiologist: Attending
Radiologist: Mahinizing Beena Radiologist: Glenna Stocktonizing Radiologist:
Beena Transcribed Date: Glenna FITZGERALD 02/20/2019 12:03 Transcribed
Date: Finalized Date: 02/20/2019 02/20/2019 12:04 12:03 Finalized

</td> Date: 02/20/2019 12:04 ID Date Data Source [id number] 02/20/2019 10:10:17 AM EDT [facility] [id number] Corporation Name Value Range Interpretation Description Data Sup porting Code Source(s) Document(s ) Erythrocytes 4.42 m/mm3 3.90-5 <td> 02/20/2019 [facility] r [#/volume] in .20 07:37</td><td> [facility] Blood m/mm3 RBC </td><td> [facility] Corporation 4.42
(3.90-5.20) m/mm3 </td> Leukocytes 8.4 k/mm3 4.8-10 <td> 02/20/2019 [place] [#/volume] in .8 07:37</td><td> [facility] Blood by k/mm3 WBC </td><td> Health Care Automated count Corporation 8.4
(4.8-10.8) k/mm3 </td> Erythrocyte 85.3 fL 81.0-9 <td> 02/20/2019 [place] mean 9.0 fL 07:37</td><td> [facility] corpuscular MCV </td><td> Health Care volume [[employer] volume] by 85.3 Automated count
(81.0-99.0) fL </td> Hematocrit 37.7 % 37.0-4 <td> 02/20/2019 [place] [Volume 7.0 % 07:37</td><td> County Fraction] of HCT </td><td> Health Care Blood by Corporation Automated count 37.7
(37.0-47.0) % </td> Erythrocyte 31.3 % 32.0-3 <td> 02/20/2019 [place] mean 6.0 % 07:37</td><td> [facility]cular [facility] hemoglobin </td><td><Bloomspot concentration raph [Mass/volume] styleCode="Bold in Blood from "> Fetus by 31.3 Automated count L </paragraph>
(32.0-36.0) % </td> Erythrocyte 26.7 pg 27.0-3 <td> 02/20/2019 [place] mean 1.5 pg 07:37</td><td> [facility] corpuscular [facility] Health Care hemoglobin </td><td><[employer] [Entitic mass] raph by Automated styleCode="Bold count "> 26.7 L </paragraph>
(27.0-31.5) pg </td> Hemoglobin 11.8 g/dL 12.0-1 <td> 02/20/2019 [place] [Mass/volume] 6.0 07:37</td><td> [place] in Blood g/dL [facility] </td><td><[employer] raph styleCode="Bold "> 11.8 L </paragraph>
(12.0-16.0) g/dL </td> Erythrocyte 14.6 % 11.5-1 <td> 02/20/2019 [place] distribution 4.5 % 07:37</td><td> County width [Entitic RDW [facility] Care volume] by </td><td><[employer] Automated count raph styleCode="Bold "> 14.6 H </paragraph>
(11.5-14.5) % </td> Lymphocytes 5.0 % 17.0-5 <td> 02/20/2019 [place] [#/volume] in 0.0 % 07:37</td><td> [facility] Blood by Lymphocytes [facility] Automated count </td><td><Perzoat ion raph styleCode="Bold "> 5.0 L </paragraph>
(17.0-50.0) % </td> Platelets 256 k/mm3 160-41 <td> 02/20/2019 [place] [#/volume] in 0 07:37</td><td> [facility] Blood by k/mm3 Platelet Count Health Care Automated count </td><td> Textic 256
(160-410) k/mm3 </td> Monocytes/Leuko 6.0 % 0.0-11 <td> 02/20/2019 [facility] cytes [Pure .0 % 07:37</td><td> County number Monocytes. Health Care fraction] in </td><td> Textic Blood by Automated count 6.0
(0.0-11.0) % </td> Platelet mean 10.9 fL 9.8-12 <td> 02/20/2019 [facility] r volume [Entitic .8 fL 07:37</td><td> County volume] in MPV </td><td> Health Care Blood by Text[employer] Automated count 10.9
(9.8-12.8) fL </td> Basophils 0.2 % 0.0-2. <td> 02/20/2019 [place] [#/volume] in 0 % 07:37</td><td> [facility] Blood by Basophils [facility] Automated count </td><td> Textic 0.2
(0.0-2.0) % </td> Basophils+Eosin 0.0 % 0.0-5. <td> 02/20/2019 [facility] ophils+Monocyte 0 % 07:37</td><td> County s [#/volume] in Eosinophils [facility] Blood by </td><td> Text[employer] Automated count 0.0
(0.0-5.0) % </td> Neutrophils [#] 88.4 % 40.0-7 <td> 02/20/2019 [facility] in Body fluid 6.0 % 07:37</td><td> [facility] by Manual count Neutrophils Health Care </td><td><trudy Textic raph styleCode="Bold "> 88.4 H </paragraph>
(40.0-76.0) % </td> Chloride 107 mEq/L 98-107 <td> 02/20/2019 [place] [Moles/volume] mEq/L 07:37</td><td> County in Serum or Chloride [facility] Plasma </td><td> Textic 107
(98-107) mEq/L </td> Carbon dioxide, 24 mEq/L 22-30 <td> 02/20/2019 [facility] total mEq/L 07:37</td><td> County [Moles/volume] CO2 </td><td> Health Car e in Serum or Corporation Plasma 24
(22-30) mEq/L </td> Immature 0.4 % 0.0-0. <td> 02/20/2019 [place] granulocytes/10 5 % 07:37</td><td> County 0 leukocytes in IG% </td><td> Health Ca re Blood by Textic Automated count 0.4
(0.0-0.5) %
The IG fraction represents metamyelocytes, myelocytes and/or
promyelocytes and is only reported as part of the automated
differential when found at a percentage of less than 6.
If higher than 6%, a manual differential will be performed.

(0.0-0.5) % </td> Sodium 138 mEq/L 135-14 <td> 02/20/2019 [place] [Moles/volume] 5 07:37</td><td> [place] in Serum or mEq/L Sodium-Serum Health Care Plasma </td><td> Textic 138
(135-145) mEq/L </td> Glucose 135 mg/dL 70-105 <td> 02/20/2019 [place] [Mass/volume] mg/dL 07:37</td><td> [place] in Blood Glucose-Serum [facility] Care </td><td><trudy Textic raph styleCode="Bold "> 135 H </paragraph>
(70-105) mg/dL </td> Potassium 4.3 mEq/L 3.5-5. <td> 02/20/2019 [place] [Moles/volume] 1 07:37</td><td> County in Serum or mEq/L Potassium-Serum [facility] Plasma </td><td> Text[employer] 4.3
(3.5-5.1) mEq/L </td> Alanine 15 U/L 6-55 <td> 02/20/2019 [place] aminotransferas U/L 07:37</td><td> County e [Enzymatic ALT (SGPT) Health Care activity/volume </td><td> Textic ] in Serum or Plasma 15
(6-55) U/L </td> Aspartate 16 U/L 4-35 <td> 02/20/2019 [place] aminotransferas U/L 07:37</td><td> County e [Enzymatic AST (SGOT) Health Care activity/volume </td><td> Textic ] in Serum or Plasma 16
(4-35) U/L </td> Urea nitrogen 10 mg/dL 6-22 <td> 02/20/2019 [facility] r [Mass/volume] mg/dL 07:37</td><td> [facility] in Blood BUN </td><td> [facility] Textic 10
(6-22) mg/dL </td> Proteins - 6.3 g/dL 6.4-8. <td> 02/20/2019 [place] Total 3 g/dL 07:37</td><td> [facility] Proteins - [facility] [employer] </td><td><trudy raph styleCode="Bold "> 6.3 L </paragraph>
(6.4-8.3) g/dL </td> Creatinine 0.82 mg/dL 0.57-1 <td> 02/20/2019 [place] [Moles/volume] .11 07:37</td><td> [facility] in Serum or mg/dL Creatinine. [facility] Plasma </td><td> Text[employer] 0.82
(0.57-1.11) mg/dL </td> Bilirubin.total 0.3 mg/dL 0.2-1. <td> 02/20/2019 [facility] [Mass/volume] 3 07:37</td><td> [facility] in Blood mg/dL Bilirubin - [facility] [employer] </td><td> 0.3
(0.2-1.3) mg/dL </td> Hemolysis index No <td> 02/20/2019 [facility] of Serum or Hemolysis 07:37</td><td> [facility] Plasma Hemolysis Index [facility] </td><td> [employer] No Hemolysis
</td> Anion gap in 7 mEq/L 7-13 <td> 02/20/2019 [place] Serum or Plasma mEq/L 07:37</td><td> [facility] Anion Gap [facility] </td><td> Text[employer] 7
(7-13) mEq/L </td> Lipemic index No Lipemia <td> 02/20/2019 [facility] er of Serum or 07:37</td><td> [facility] Plasma Lipemia Index Health Care </td><td> [facility] No Lipemia
</td> Globulin 2.6 gm/dL 2.9-4. <td> 02/20/2019 [place] [Mass/volume] 0 07:37</td><td> [facility] in Serum gm/dL Globulin Health Care </td><td><trudy [facility] raph styleCode="Bold "> 2.6 L </paragraph>
(2.9-4.0) gm/dL </td> Calcium 8.7 mg/dL 8.6-10 <td> 02/20/2019 [place] [Mass/volume] .2 07:37</td><td> [facility] in Blood mg/dL Calcium Health Care </td><td> [facility] 8.7
(8.6-10.2) mg/dL </td> Albumin 3.7 g/dL 3.4-4. <td> 02/20/2019 [place] [Mass/volume] 8 g/dL 07:37</td><td> [facility] in Serum or Albumin Health Care Plasma </td><td> [employer] 3.7
(3.4-4.8) g/dL </td> Prothrombin 10.2 secs 9.8-12 <td> 02/20/2019 [place] time (PT) .0 07:37</td><td> [facility] secs Prothrombin [facility] Care Time. [facility] </td><td> 10.2
(9.8-12.0) secs </td> aPTT panel - 26.8 secs 25.0-3 <td> 02/20/2019 [place] Platelet poor 2.0 07:37</td><td> [facility] plasma secs Partial [facility] Care Thromboplastin [facility] Time </td><td> 26.8
(25.0-32.0) secs </td> Magnesium 2.1 mg/dL 1.6-2. <td> 02/20/2019 [place] [Mass/volume] 6 07:37</td><td> [facility] in Serum or mg/dL Magnesium Level Health Care Plasma </td><td> [employer] 2.1
(1.6-2.6) mg/dL </td> Hemoglobin A1C 6.1 % 4.0-5. <td> 02/19/2019 [facility] 6 % 21:46</td><td> [facility] Hemoglobin A1C Health Care </td><td><para Corporation graph styleCode="Bold "> 6.1 H </paragraph>
(4.0-5.6) %
Increased risk for diabetes mellitus is seen in patients with HgA1C values
between 5.7-6.4%. Values > or = 6.5% are considered diagnostic of diabetes
mellitus.
Hemolytic anemias, hemoglobinopath ies, or recent transfusion may impact
HbA1c results. Clinical correlation is recommended.
===
ESTIMATED AVERAGE GLUCOSE (eAG)
---
RELATIONSHIP BETWEEN A1C AND eAG
===
A1C(%) eAG(mg/dL)
6 1 26
7 1 54
8 1 83
9 2 12
10 240
11 269
12 298
Source: Adapted from [employer]. Standards of medical
care in diabetes-2014. Diabetes Care.2014;37(Hernandez pp 1):S14-S80, table 8.

(4.0-5.6) % </td> Phosphate 3.7 mg/dL 2.3-4. <td> 02/20/2019 [place] [Mass/volume] 7 07:37</td><td> [place] in Serum or mg/dL Inorganic Health [facility] Plasma Phosphorus Corporation </td><td> 3.7
(2.3-4.7) mg/dL </td> Icteric index Not <td> 02/20/2019 [facility] of Serum or Icteric 07:37</td><td> [facility] Plasma Icteric Index Health Care </td><td> Corporation Not Icteric
</td> Glucose 96 mg/dL 70-105 <td> 02/19/2019 [place] [Mass/volume] mg/dL 18:55</td><td> [facility] in Capillary Glucose - [facility] blood by Finger Stick [facility] Glucometer </td><td> 96
(70-105) mg/dL </td> Procedure Social History Code Duration Value Status Description Data Source(s ) Smoking 02/25/2020 Born [place] No completed Born [place] No ETOH MED GEN ([facility] 12:00:00 AM EDT ETOH No IVDA/DA No IVDA/DA No M edical, ) No tobacco tobacco Smoking 02/25/2020 Unknown if ever completed Unknown if ever MEDG EN ([facility] 12:00:00 AM EDT smoked smoked [facility], ) Smoking Never smoker completed Never smoker [facility] Vital Signs ID Date Data Source UNK Name Value Range Interpretation Code Description Data Source(s) Heart rate 75 /min 75 /min MEDGEN ([facility], ) Inhaled oxygen 98 % 98 % MEDGEN ([facility], ) Body mass index 46.8 kg/m2 46.8 kg/m2 MEDGEN ([facility] (BMI) [Ratio] [facility], ) Diastolic blood 80 mm[Hg] 80 mm[Hg] MEDGEN ([facility], ) Systolic blood 180 mm[Hg] 180 mm[Hg] MEDGEN ([facility], ) Body weight 256 lb 256 lb MEDGEN ([facility], ) Body height 62 in 62 in MEDGEN ([facility], ) Diastolic blood 69 {} Normal (applies to 69 {} [place] pressure non-numeric results) [facility] on Systolic blood 121 {} Normal (applies to 121 {} [place] pressure non-numeric results) [facility] on First Respiration 18.0000 {} Normal (applies to 18.0000 {} [place] rate Set non-numeric results) [facility] Heart rate 76.0000 {} Normal (applies to 76.0000 {} [place] non-numeric results) [facility] Body temperature 98.3000 {} Normal (applies to 98.3000 {} [place] non-numeric results) [facility] on Diastolic blood 77 {} Normal (applies to 77 {} [place] pressure non-numeric results) [facility] on Systolic blood 129 {} Normal (applies to 129 {} [place] pressure non-numeric results) [facility] on First Res[place] 18.0000 {} Normal (applies to 18.0000 {} [place] rate Set non-numeric results) [facility] Heart rate 72.0000 {} Normal (applies to 72.0000 {} [place] non-numeric results) [facility] Body temperature 98.0000 {} Normal (applies to 98.0000 {} [place] non-numeric results) [facility] wt - obtain Normal (applies to {} [place] non-numeric results) [facility] weight - kg 112.7300 {} Normal (applies to 112.7300 {} [place] non-numeric results) [facility] on
[2020-03-09 12:08] VITALS: TEMP 97.7
[2020-03-09 12:51] VITALS: BP 126/71; PULSE 68
--- NOTE | 2020-03-10 18:17 | PATH ---
Surgical Pathology Report Patient Name: ELYSE LEIGH [facility]. Rec. #: [id number] /Age/Gender: 1955 (Age: 64) / F Account: [id number] Location: [facility] Taken: 03/09/2020 Received: 03/09/2020 Reported: 03/10/2020 Physicians: Deonte Zambrano D.O. 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 NO DYSPLASIA IDENTIFIED. Electronically Signed Elyse Peralta M.D. Gross Description Received in formalin, labeled "distal esophagus, Ackerman's, 37-35 cm" are 2 villalobos, irregular portions of soft tissue measuring 0.3 and 0.4 cm. in greatest dimension. The specimens are submitted in toto in one cassette. MLSZ/03/09/2020 sanml/03/09/2020
== END 2020-03-09 12:55 | disposition home or self-care (01) ==
LOC: JASU-ENDO 05:01
PROVIDERS: ATTEND Internal Medicine Gastroenterology
PROC: 0DB38ZX Excision of Lower Esophagus, Via Natural or Artificial Opening Endoscopic, Diagnostic (ICD-10-PCS; principal; 2020-03-09 11:00)
DX: K21.0 Gastro-esophageal reflux disease with esophagitis (principal); K22.70 Barrett's esophagus without dysplasia; K44.9 Diaphragmatic hernia without obstruction or gangrene; I10 Essential (primary) hypertension; E78.5 Hyperlipidemia, unspecified
CPT/HCPCS: 88305-TC

== ENCOUNTER 2020-03-16 05:29 | Day surgery (SDC) | payer OTHER ==
[2020-03-16 08:24] VITALS: BMI 46.7
[2020-03-16 09:41] VITALS: TEMP 98.5
[2020-03-16 10:26] VITALS: BP 129/67; PULSE 69
== END 2020-03-16 10:30 | disposition home or self-care (01) ==
LOC: JASU-ENDO 05:29
PROVIDERS: ATTEND Internal Medicine Gastroenterology
PROC: 0DJD8ZZ Inspection of Lower Intestinal Tract, Via Natural or Artificial Opening Endoscopic (ICD-10-PCS; principal; 2020-03-16 09:00)
DX: R19.5 Other fecal abnormalities (principal); K57.30 Diverticulosis of large intestine without perforation or abscess without bleeding; K64.8 Other hemorrhoids; I10 Essential (primary) hypertension; E78.5 Hyperlipidemia, unspecified; Z85.42 Personal history of malignant neoplasm of other parts of uterus; Z92.21 Personal history of antineoplastic chemotherapy; Z92.3 Personal history of irradiation

== ENCOUNTER 2021-09-08 04:52 | Day surgery (SDC) | payer OTHER, MEDICARE ==
[2021-09-08 09:13] VITALS: BMI 49.4
[2021-09-08 10:39] VITALS: TEMP 99.3
[2021-09-08 10:40] VITALS: PULSE 75
[2021-09-08 11:05] VITALS: BP 103/67
== END 2021-09-08 11:35 | disposition home or self-care (01) ==
LOC: JASU-ENDO 04:52
PROVIDERS: ATTEND Internal Medicine Gastroenterology
PROC: 0DBF8ZX Excision of Right Large Intestine, Via Natural or Artificial Opening Endoscopic, Diagnostic (ICD-10-PCS; principal; 2021-09-08 09:30)
DX: D50.9 Iron deficiency anemia, unspecified (principal); K52.9 Noninfective gastroenteritis and colitis, unspecified; K57.30 Diverticulosis of large intestine without perforation or abscess without bleeding; K64.8 Other hemorrhoids; K63.89 Other specified diseases of intestine
CPT/HCPCS: 88305-TC

== ENCOUNTER 2024-01-31 04:26 | Day surgery (SDC) | payer OTHER, MEDICARE ==
[2024-01-28 09:22] VITALS: BMI 48.8
[2024-01-31 08:54] VITALS: RESP 15
[2024-01-31 08:57] VITALS: BP 119/59; PULSE 66; TEMP 98
== END 2024-01-31 08:57 | disposition home or self-care (01) ==
LOC: JASU-ENDO 04:26
PROVIDERS: ATTEND Internal Medicine Gastroenterology
PROC: 0DB98ZX Excision of Duodenum, Via Natural or Artificial Opening Endoscopic, Diagnostic (ICD-10-PCS; principal; 2024-01-31 08:00)
DX: D50.9 Iron deficiency anemia, unspecified (principal); K44.9 Diaphragmatic hernia without obstruction or gangrene
CPT/HCPCS: 82962; 88305-TC

== ENCOUNTER 2024-03-20 04:24 | Day surgery (SDC) | payer OTHER, MEDICARE ==
[2024-03-19 09:38] VITALS: BMI 48.6
[2024-03-20] MEDS ORDERED: LIDOCAINE VISCOUS 2% ORAL/TOP 15 ML UNIT-DOSE CUP ONE (09:05)
[2024-03-20 09:38] VITALS: TEMP 97.4
[2024-03-20 10:13] VITALS: BP 128/66; PULSE 71; RESP 19
== END 2024-03-20 10:32 | disposition home or self-care (01) ==
LOC: JASU-ENDO 04:24
PROVIDERS: ATTEND Internal Medicine Gastroenterology
PROC: 0DB68ZX Excision of Stomach, Via Natural or Artificial Opening Endoscopic, Diagnostic (ICD-10-PCS; 2024-03-20)
PROC: 0DB38ZX Excision of Lower Esophagus, Via Natural or Artificial Opening Endoscopic, Diagnostic (ICD-10-PCS; 2024-03-20)
PROC: 0DB98ZX Excision of Duodenum, Via Natural or Artificial Opening Endoscopic, Diagnostic (ICD-10-PCS; principal; 2024-03-20 08:45)
DX: K29.50 Unspecified chronic gastritis without bleeding (principal); K44.9 Diaphragmatic hernia without obstruction or gangrene; K21.00 Gastro-esophageal reflux disease with esophagitis, without bleeding
CPT/HCPCS: 82962; 88305-TC; 88342-TC